=== PATIENT | male | born 1960 | race Caucasian/White ===

== ENCOUNTER 2017-12-20 10:16 | Emergency (ER) | payer SELFPAY ==
[~2017-12-20] VITALS: Ht 172.7 cm; Wt 66.2 kg
[~2017-12-20 10:16] MED LIST: HYDR-3533 PO; NAPR500 PO
[2017-12-20 10:26] VITALS: BP 155/101; PULSE 81; RESP 16; TEMP 97.9; O2SAT 97
[2017-12-20] MEDS ORDERED: TETANUS/DIPHTHERIA TOXOID ADULT 0.5 ML VIAL IM ONE (11:45)
--- NOTE | 2017-12-20 11:49 | PD ---
HPI . Staple removal Chief Complaint: Laceration/Skin Injury Time Seen by Provider: 11:44 Travel History International Travel<30 days: No Contact w/Intl Traveler<30days: No Traveled to known affect area: No History of Present Illness HPI This patient presents for staple removal from his scalp. Jazmine were placed a little over a week ago. The complaint is that they are driving him crazy. PFSH Past Medical History Hx Anticoagulant Therapy: No Cardiovascular Problems: No Chemotherapy: No Cerebrovascular Accident: No Diabetes: No Diminished Hearing: No Musculoskeletal: Yes (left rotator cuff injury) Respiratory: No Immunizations Current: No Tetanus Vaccination: < 5 Years Past Surgical History Other Surgery: Yes (RT ARM REPAIR.) Social History Alcohol Use: Yes (OCC) Tobacco Use: Yes (1-PPD) Substance Use: No Allergies-Medications (Allergen,Severity, Reaction): Coded Allergies: codeine (Unverified Allergy, Intermediate, ITCHING, 12/20/17) Reported Meds & Prescriptions Reported Meds & Active Scripts Active No Active Prescriptions or Reported Medications Review of Systems Except as stated in HPI: all other systems reviewed are Neg Physical Exam Narrative GENERAL: Awake and alert and in no acute distress. SKIN: Warm and dry. He has a healed laceration on the right side of his scalp just scabbed over. No evidence of infection such as purulent drainage, redness or swelling. HEAD: Normocephalic/atraumatic. EYES: Pupils are equal. Extraocular movements are intact. NECK: Normal range of motion. RESPIRATORY: Nonlabored respirations. MUSCULOSKELETAL: Atraumatic. NEUROLOGICAL: Nonfocal. PSYCHIATRIC: Appropriate mood and affect. Data Data Last Documented VS Vital Signs Date Time Temp Pulse Resp B/P (MAP) Pulse Ox O2 Delivery O2 Flow Rate FiO2 12/20/17 10:26 97.9 81 16 155/101 (119) 97 Orders Orders Tetanus/Diphtheria Tox Adult (Tetanus/Di (12/20/17 11:45) MDM Medical Decision Making Medical Screen Exam Complete: Yes Emergency Medical Condition: Yes Differential Diagnosis My differential diagnosis of a wound check includes but is not limited to normal healing, delayed healing, localized wound infection, cellulitis, sepsis Narrative Course This patient presents requesting staple removal. His wound appears to be well- healed with no signs of infection. 4 jazmine were removed. Diagnosis Primary Impression: Removal of staple Patient Instructions: General Instructions Scripts No Active Prescriptions or Reported Meds Disposition: 01 DISCHARGE HOME Condition: Stable Kathy Diaz MD Dec 20, 2017 11:49
[2017-12-20] MEDS ORDERED: CEPH-460 PO (12:04)
--- NOTE | 2017-12-20 12:05 | PD ---
HPI Chief Complaint: Laceration/Skin Injury Time Seen by Provider: 10:41 Travel History International Travel<30 days: No Contact w/Intl Traveler<30days: No Traveled to known affect area: No History of Present Illness HPI Is is a 57-year-old male with a laceration to left hand caused by a razor-punch box tender prior to arrival. He was attempting to cut a piece of building material when he accidentally cut the hand. He has full range of motion and normal sensation of the thumb and all fingers of the hand. He has pain at the site of the laceration. No aggravating or alleviating factors. Symptoms severity moderate. PFSH Past Medical History Medical History: Denies Significant Hx Hx Anticoagulant Therapy: No Cardiovascular Problems: No Chemotherapy: No Cerebrovascular Accident: No Diabetes: No Diminished Hearing: No Musculoskeletal: Yes (left rotator cuff injury) Respiratory: No Immunizations Current: No Tetanus Vaccination: < 5 Years Past Surgical History Other Surgery: Yes (RT ARM REPAIR.) Social History Alcohol Use: Yes (OCC) Tobacco Use: Yes (1-PPD) Substance Use: No Allergies-Medications (Allergen,Severity, Reaction): Coded Allergies: codeine (Unverified Allergy, Intermediate, ITCHING, 12/20/17) Reported Meds & Prescriptions Reported Meds & Active Scripts Active No Active Prescriptions or Reported Medications Review of Systems Except as stated in HPI: all other systems reviewed are Neg General / Constitutional: No: Fever Eyes: No: Visual changes HENT: No: Headaches Cardiovascular: No: Chest Pain or Discomfort Respiratory: No: Shortness of Breath Gastrointestinal: No: Abdominal Pain Genitourinary: No: Dysuria Physical Exam Narrative GENERAL: Alert well-appearing 57-year-old male SKIN: Warm and dry. HEAD: Normocephalic. EYES: No injection or drainage. NECK: Supple. MUSCULOSKELETAL: No cyanosis, or edema. Left hand: 2.5 CM laceration lateral aspect at the base of the thumb volar aspect over the first metacarpal. No tendon or vascular injury identified. No foreign body visualized. Wound is actively bleeding without pulsatile bleeding. Patient can flex and extend the thumb. Normal sensation. Brisk cap refill. 2+ radial pulse. Data Data Last Documented VS Vital Signs Date Time Temp Pulse Resp B/P (MAP) Pulse Ox O2 Delivery O2 Flow Rate FiO2 12/20/17 10:26 97.9 81 16 155/101 (653) 97 Orders Orders Tetanus/Diphtheria Tox Adult (Tetanus/Di (12/20/17 11:45) MDM Medical Decision Making Medical Screen Exam Complete: Yes Emergency Medical Condition: Yes Differential Diagnosis Hand laceration, Tendon injury, ligamental injury, vascular injury Narrative Course 57-year-old male with laceration to the left hand. The extremity is neurovascularly intact. I do not suspect tendon or neurovascular injury. Wound was sutured closed. Patient tolerated procedure well. She'll be put on prophylactic antibiotics due to the deep nature of the wound. Tetanus immunization was updated. Patient was put into immobilizing thumb splint. He was instructed to follow-up with primary care for recheck. Procedures Procedure Narrative LACERATION LOCATION: Left hand LENGTH: 2.5 cm NUMBER OF STITCHES/RON: 7 REPAIR: The area of the laceration was prepped with Betadine and sterilely draped. The laceration was infiltrated with 1% lidocaine. The wound was copiously irrigated and explored without evidence of foreign body, tendon injury or neurovascular injury. The wound was closed using 3-0 Ethilon. This was a single layer repair. A sterile dressing was applied. The patient was advised to keep the dressing clean and dry. Patient tolerated the procedure well. Diagnosis Primary Impression: Hand laceration Qualified Codes: S61.412A - Laceration without foreign body of left hand, initial encounter Patient Instructions: General Instructions Departure Forms: Tests/Procedures Additional Instructions: Sutures need to be removed in 7-10 days. Antibiotics as directed. Do not submerge the wound in water. Wash the area daily with soap and water. Apply clean dry dressing. Follow-up with PCP for recheck. Scripts Cephalexin (Keflex) 500 Mg Capsule 500 MG PO Q6H for Infection for 5 Days, #20 CAP 0 Refills Prov: Kae Lucas 12/20/17 Disposition: 01 DISCHARGE HOME Condition: Stable Kae Lucas Dec 20, 2017 12:05
== END 2017-12-20 12:25 | disposition home or self-care (01) ==
LOC: PHEFT 10:16
DX: S61.412A Laceration without foreign body of left hand, initial encounter (principal); F17.200 Nicotine dependence, unspecified, uncomplicated; W26.0XXA Contact with knife, initial encounter; Z23 Encounter for immunization; Z88.5 Allergy status to narcotic agent
CPT/HCPCS: 12001; 90471; 90714